=== PATIENT | male | born 1990 | race Two or more races ===

== ENCOUNTER 2025-08-09 14:44 | Emergency (ER) | payer OTHER ==
[2025-08-09 15:56] LABS: #Basophils 0.2 thou/uL (0.0-0.2); #Eosinophils 0.9 thou/uL (0.0-0.7); #Lymphocytes 1.7 thou/uL (1.20-3.40); #Monocytes 0.4 thou/uL (0.11-0.59); #Neutrophils 4.7 thou/uL (1.40-6.50); %Basophils 2.0 % (0.0-1.0); %Eosinophils 11.4 % (0.0-10.0); %Lymphocytes 21.8 % (21.0-51.0); %Monocytes 4.9 % (0.0-10.0); %Neutrophils 59.9 % (42.0-75.0); Hematocrit 43.8 % (42.0-52.0); Hemoglobin 15.5 g/dL (14.0-18.0); Mean Corpuscular Hemoglobin 29.6 pg (27.0-31.0); Mean Corpuscular Volume 83.3 fl (78.0-98.0); Platelet Count 460 10x3/uL (130-400); Red Blood Cell (RBC) Count 5.26 mill/uL (4.70-6.10); White Blood Cell (WBC) Count 7.8 10x3/uL (4.8-10.8)
[2025-08-09 16:08] LABS: Anion Gap 17 mmol/L (10-20); BUN (Urea Nitrogen) 28 mg/dL (8.9-20.6); Calc. Creatinine Clearance 0 mL/min (70-130); Calcium 9.7 mg/dL (7.8-10.44); Carbon Dioxide 21 mmol/L (22-29); Chloride 104 mmol/L (98-107); Glucose 105 mg/dL (70-105); Potassium 4.3 mmol/L (3.5-5.1); Sodium 138 mmol/L (136-145)
[2025-08-09] MEDS ORDERED: Lidocaine 1% (PF) 30 ML VIAL ONE (16:15)
[2025-08-09] MEDS ORDERED: Bacitracin 1 PK ONE (16:49)
[2025-08-09] MEDS ORDERED: HYDROcodone/Acetaminophen 5/325 mg Tablet ONE (17:23)
== END 2025-08-09 17:35 | disposition home or self-care (01) ==
LOC: NAV ERS 14:44
DX: S62.634B Displaced fracture of distal phalanx of right ring finger, initial encounter for open fracture (principal); S60.141A Contusion of right ring finger with damage to nail, initial encounter; W23.1XXA Caught, crushed, jammed, or pinched between stationary objects, initial encounter
CPT/HCPCS: 11740; 12001; 80048; 85025; J2003; J3490